=== PATIENT | male | born 1965 | race Caucasian/White ===

== ENCOUNTER 2017-06-19 13:44 | Outpatient (CLI) | payer OTHER ==
[2013-11-25 15:32] VITALS: BP 116/79
--- NOTE | 2017-06-19 14:15 | Diagnostic Imaging Report ---
INGRIS HERRERA [facility] [id number] [facility].[address] [id number] Report Submission Date: Jun 19, 2017 2:12:49 PM [employer] Patient Study Name: VALENTINA HALL Date: Jun 19, 2017 1:58:06 PM [employer] Modality Type: CR Gender: M Description: SPINE : 61 Institution: [facility] Physician: INGRIS HERRERA Examination: Cervical spine History: Discomfort Comparison exams: None available Findings: 3 views of the cervical spine demonstrate normal height and alignment. No anterior compression. No abnormal listhesis. Osteophyte formation and disc space narrowing from C4/C5 through C7/T1. No odontoid abnormality. No prevertebral abnormality. Impression: Multilevel degenerative changes. No compression deformity. If patient is experiencing neurologic symptoms, consider obtaining MRI to further evaluate. Electronically signed on Jun 19, 2017 2:12:49 PM [employer] by: Moise SULLIVAN
== END 2017-06-19 14:50 ==
LOC: LAB 13:44
PROVIDERS: ATTEND Family Medicine
DX: M54.2 Cervicalgia (principal); E03.9 Hypothyroidism, unspecified
CPT/HCPCS: 36415; 72040; 84443